=== PATIENT | male | born 1975 ===

== ENCOUNTER 2018-02-09 20:07 | Emergency (ER) | payer OTHER ==
[~2018-02-09] VITALS: Ht 170.2 cm; Wt 77.1 kg
[~2018-02-09 20:07] MED LIST: LANTUS SOLOSTAR3 ML; METFORMIN HCL500 M2
[2018-02-09] MEDS ORDERED: GLIPIZIDE ER2.5 MG (21:26)
[2018-02-09] MEDS ORDERED: METFORMIN HCL1000 MG (21:27)
[2018-02-09] MEDS ORDERED: ATORVASTATIN CA40 MG (21:28)
[2018-02-09] MEDS ORDERED: ATENOLOL25 MG (21:28)
[2018-02-09] MEDS ORDERED: [UNRECOGNIZED DRUG - OTHER] (21:29)
[2018-02-09] MEDS ORDERED: ASA81 MG (21:29)
[2018-02-09] MEDS ORDERED: ALLERGY RELIEF10 M3 PO (22:48)
== END 2018-02-09 22:49 | disposition home or self-care (01) ==
LOC: ER 20:07
DX: R22.0 Localized swelling, mass and lump, head (principal); T39.015A Adverse effect of aspirin, initial encounter

== ENCOUNTER 2020-02-15 20:25 | Emergency (ER) | payer OTHER ==
[~2020-02-15] VITALS: Ht 170.2 cm; Wt 76.2 kg
[~2020-02-15 20:25] MED LIST changes: +ALLERGY RELIEF10 M3 PO; +ASA81 MG; +ATENOLOL25 MG; +ATORVASTATIN CA40 MG; +GLIPIZIDE ER2.5 MG; +METFORMIN HCL1000 MG; +[UNRECOGNIZED DRUG - OTHER]
[2020-02-15] MEDS ORDERED: BRILINTA60 MG (20:50)
== END 2020-02-15 21:21 | disposition home or self-care (01) ==
LOC: ER 20:25
DX: S01.02XA Laceration with foreign body of scalp, initial encounter (principal); W26.8XXA Contact with other sharp object(s), not elsewhere classified, initial encounter; Y93.89 Activity, other specified; Y92.018 Other place in single-family (private) house as the place of occurrence of the external cause; Y99.8 Other external cause status